=== PATIENT | female | born 1995 | race Caucasian/White ===

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

== ENCOUNTER 2018-08-07 11:41 | Emergency (ER) | payer MEDICAID, OTHER ==
[~2018-08-07] VITALS: Ht 162.6 cm; Wt 59.4 kg
[2018-08-07] MEDS ORDERED: HYDROCODONE/APAP 5/325MG 1 EACH TABLET ONE ×2 (12:21→13:39)
--- NOTE | 2018-08-07 12:27 | NUR ---
PATIENT SIGNED A WAIVER, PER PATIENT HER LMP STARTED YESTERDAY 08/06/18. RADIOLOGY MADE AWARE.
[2018-08-07] MEDS ORDERED: HYDROCODONE/APAP 5/325MG 1 EACH TABLET PO ONE ×2 (12:30→14:00)
--- NOTE | 2018-08-07 14:35 | NUR ---
PATIENT STATED SHE FELT BETTER. RX PROVIDED AND EXPLAINED. Patient discharged to home in stable condition. Written and verbal after care instructions given. Patient verbalizes understanding of instruction.
[2018-08-07 14:43] VITALS: BP 137/77
== END 2018-08-07 14:43 | disposition home or self-care (01) ==
LOC: ER 11:41
DX: S06.0X0A Concussion without loss of consciousness, initial encounter (principal); S20.319A Abrasion of unspecified front wall of thorax, initial encounter; S40.212A Abrasion of left shoulder, initial encounter; V49.49XA Driver injured in collision with other motor vehicles in traffic accident, initial encounter; Y93.89 Activity, other specified; Y92.413 State road as the place of occurrence of the external cause; Y99.8 Other external cause status
CPT/HCPCS: 70450-TC; 71111-TC; 72125-TC